=== PATIENT | female | born 1930 | race Caucasian/White ===

== ENCOUNTER 2016-11-04 14:29 | Emergency (ER) | payer MEDICARE, MEDICAID ==
[~2016-11-04] VITALS: Ht 157.5 cm; Wt 50.0 kg
[2016-11-04] MEDS ORDERED: ONDANSETRON ODT 4 MG PO ONE (16:30)
[2016-11-04] MEDS ORDERED: HYDROcodone/APAP 5/325 TABLET PO ONE (16:30)
[2016-11-04] MEDS ORDERED: HYDROcodone/APAP 5/325 TABLET ONE (16:31)
[2016-11-04] MEDS ORDERED: ONDANSETRON ODT 4 MG ONE (16:32)
[2016-11-04 17:14] VITALS: BP 131/71
== END 2016-11-04 19:03 | disposition home or self-care (01) ==
LOC: ED 14:40
DX: S30.0XXA Contusion of lower back and pelvis, initial encounter (principal); G89.11 Acute pain due to trauma; M54.5 Low back pain; R10.2 Pelvic and perineal pain; Z88.8 Allergy status to other drugs, medicaments and biological substances; W01.0XXA Fall on same level from slipping, tripping and stumbling without subsequent striking against object, initial encounter; Y93.E1 Activity, personal bathing and showering; Y92.002 Bathroom of unspecified non-institutional (private) residence as the place of occurrence of the external cause; Y99.8 Other external cause status
CPT/HCPCS: 72110; 72190; 72220; 99284; Q0162